=== PATIENT | male | born 1950 | race Caucasian/White ===

== ENCOUNTER 2018-12-20 17:31 | Inpatient (IN) | payer OTHER, MEDICAID ==
[~2018-12-20] VITALS: Ht 175.3 cm; Wt 70.0 kg
[~2018-12-20 17:31] MED LIST: ACET325T14 PO; ACID1TAB7 PO; ALBU18HF INH; ALBU8.5H8 INH; AMLO-150 PO; BISA10SU65 PR; BUDE0.5A NPPB; BUDE10.2 INH; CARB-136 EACH EAR; DOCU-131 PO; GUAI200T3 PO; Guaifenesin/Cod200mg-20MG/10ML PO; HEPA50002 SQ; IPRA3AMP30 NPPB; IPRA4AER INH; LACT20SO13 NG; METH4TAB2 PO; ONDA4TAB13 PO; PANT40TA5 PO; POLY17PO5 PO; PRED10TA PO; SENN-177 NG; SENN-177 PO; SENN8.8S5 NG; UMEC1DIS INH; [UNRECOGNIZED DRUG - OTHER]; methylPREDNISolone SOD SUCC 125 MG/2 ML IVPush SCH
[2018-12-20 18:55] LABS: MD NO; MEAN CORPUSCULAR HEMOGLOBIN 27.4 pg (27.5-34.5)
[2018-12-20 19:02] LABS: BASOPHILS # (AUTO) 0.09 x10^3/uL (0-0.1); BASOPHILS % (AUTO) 1 % (0-1); EOSINOPHILS # (AUTO) 0.22 x10^3/uL (0-0.4); EOSINOPHILS % (AUTO) 2 % (1-7); LYMPHOCYTES # (AUTO) 1.01 x10^3/uL (1-3.4); LYMPHOCYTES % (AUTO) 7 % (22-44); MEAN CORPUSCULAR HGB CONC 31.5 g/dL (33.2-36.2); MEAN PLATELET VOLUME 8.8 fL (7.4-10.4); MONOCYTES # (AUTO) 0.84 x10^3/uL (0.2-0.8); MONOCYTES % (AUTO) 6 % (2-9); NEUTROPHILS # (AUTO) 12.24 x10^3/uL (1.8-6.8); NEUTROPHILS % (AUTO) 85 % (42-75); PLATELET COUNT 339 x10^3/uL (130-400); RED BLOOD COUNT 4.07 x10^6/uL (4.38-5.82); RED CELL DISTRIBUTION WIDTH 19.2 % (9.4-14.8)
[2018-12-20 19:17] LABS: ALANINE AMINOTRANSFERASE 22 U/L (12-78); ANION GAP 5 mmol/L (5-15); CALCIUM 9.1 mg/dL (8.5-10.1); CHLORIDE 99 mmol/L (98-107)
[2018-12-20 19:22] LABS: ALKALINE PHOSPHATASE 67 U/L (45-117); BILIRUBIN,TOTAL 0.2 mg/dL (0.2-1.0); CREATININE 0.63 mg/dL (0.7-1.3); TOTAL PROTEIN 6.7 g/dL (6.4-8.2); TROPONIN I < 0.015 ng/mL (0.000-0.045)
--- NOTE | 2018-12-20 19:35 | NUR ---
REPORT OF PT FROM ANTONIETTA LYLE AND ASSUMING CARE OF PT AT THIS TIME.
[2018-12-20] MEDS ORDERED: ALBUTEROL 0.5%, 20ML NPPB SCH (20:30)
--- NOTE | 2018-12-20 21:16 | NUR ---
REPORT OF PT TO ANTONIETTA CHANG. ALL QUESTIONS ANSWERED. PT UPDATED ON ROOM ASSIGNMENT AND VERBALIZES UNDERSTANDING. TECH PAGED FOR TRANSPORT AT THIS TIME.
[2018-12-20] MEDS ORDERED: ALBUTEROL SULFATE 2.5 MG/3 ML NPPB ONE (21:30)
[2018-12-20] MEDS ORDERED: POLYETHYLENE GLYCOL 17 GM PACKET PO PRN (21:30)
[2018-12-20] MEDS ORDERED: methylPREDNISolone SOD SUCC 125 MG/2 ML IVPush ONE (21:30)
[2018-12-20] MEDS ORDERED: ONDANSETRON ODT 4 MG PO PRN (21:30)
[2018-12-20] MEDS ORDERED: BISACODYL 10 MG SUPP PR PRN (21:30)
[2018-12-20] MEDS ORDERED: GUAIFENESIN/DM 200-20MG, 10ML UDC PO PRN (21:30)
[2018-12-20] MEDS: SODIUM CHLORIDE FLUSH 10ML SYR IVF SCH (21:56)
[2018-12-20] MEDS: HEPARIN 5,000 UNITS/ML, 1ML SQ SCH (21:56)
[2018-12-20 22:07] VITALS: BP 129/76
[2018-12-21 00:34] VITALS: BP 126/78
[2018-12-21] MEDS: methylPREDNISolone SOD SUCC 125 MG/2 ML IVPush SCH ×3 (04:49→22:46)
[2018-12-21] MEDS: HEPARIN 5,000 UNITS/ML, 1ML SQ SCH ×2 (04:49→13:58)
[2018-12-21] MEDS: ACETAMINOPHEN 325 MG TABLET PO PRN (05:21)
[2018-12-21 05:32] LABS: MEAN CORPUSCULAR HEMOGLOBIN 27.5 pg (27.5-34.5); MEAN CORPUSCULAR HGB CONC 31.6 g/dL (33.2-36.2); MEAN CORPUSCULAR VOLUME 86.9 fL (81-97); MEAN PLATELET VOLUME 8.9 fL (7.4-10.4); PLATELET COUNT 309 x10^3/uL (130-400); RED BLOOD COUNT 3.84 x10^6/uL (4.38-5.82); RED CELL DISTRIBUTION WIDTH 19.6 % (9.4-14.8)
[2018-12-21 05:33] LABS: CHLORIDE 102 mmol/L (98-107)
[2018-12-21 05:55] LABS: BASOPHILS % (AUTO) 0 % (0-1); EOSINOPHILS # (AUTO) 0.07 x10^3/uL (0-0.4); EOSINOPHILS % (AUTO) 1 % (1-7); LYMPHOCYTES # (AUTO) 0.47 x10^3/uL (1-3.4); LYMPHOCYTES % (AUTO) 4 % (22-44); MD SCAN; MONOCYTES # (AUTO) 0.04 x10^3/uL (0.2-0.8); MONOCYTES % (AUTO) 0 % (2-9); NEUTROPHILS # (AUTO) 10.37 x10^3/uL (1.8-6.8); NEUTROPHILS % (AUTO) 95 % (42-75)
[2018-12-21 05:58] LABS: ALANINE AMINOTRANSFERASE 19 U/L (12-78); ALBUMIN 2.7 g/dL (3.4-5.0); ALKALINE PHOSPHATASE 59 U/L (45-117); ANION GAP 6 mmol/L (5-15); BILIRUBIN,TOTAL 0.2 mg/dL (0.2-1.0); CALCIUM 8.9 mg/dL (8.5-10.1); CREATININE 0.53 mg/dL (0.7-1.3); TOTAL PROTEIN 6.1 g/dL (6.4-8.2)
[2018-12-21 07:20] VITALS: BP 115/78
[2018-12-21] MEDS: ALBUTEROL/IPRATROPIUM 2.5MG/0.5MG, 3 ML NPPB SCH ×4 (07:20→19:51)
[2018-12-21] MEDS: SENNA/DOCUSATE TABLET PO SCH (09:00)
[2018-12-21] MEDS: SODIUM CHLORIDE FLUSH 10ML SYR IVF SCH ×2 (09:54→22:46)
[2018-12-21] MEDS: BUDESONIDE 0.5 MG/2 ML INHA INH SCH ×2 (11:20→19:51)
[2018-12-21 13:58] VITALS: BP 124/79
[2018-12-21 20:58] VITALS: BP 118/68
[2018-12-22 02:36] VITALS: BP 112/71
[2018-12-22 07:18] VITALS: BP 120/75
[2018-12-22] MEDS: ALBUTEROL/IPRATROPIUM 2.5MG/0.5MG, 3 ML NPPB SCH ×4 (07:42→20:00)
[2018-12-22] MEDS: BUDESONIDE 0.5 MG/2 ML INHA INH SCH ×2 (07:43→20:04)
[2018-12-22 08:42] LABS: BASOPHILS # (AUTO) 0.05 x10^3/uL (0-0.1); BASOPHILS % (AUTO) 0 % (0-1); EOSINOPHILS # (AUTO) 0.39 x10^3/uL (0-0.4); EOSINOPHILS % (AUTO) 3 % (1-7); LYMPHOCYTES # (AUTO) 0.64 x10^3/uL (1-3.4); LYMPHOCYTES % (AUTO) 5 % (22-44); MD NO; MEAN CORPUSCULAR HEMOGLOBIN 27.2 pg (27.5-34.5); MEAN CORPUSCULAR HGB CONC 31.5 g/dL (33.2-36.2); MEAN CORPUSCULAR VOLUME 86.5 fL (81-97); MONOCYTES # (AUTO) 0.34 x10^3/uL (0.2-0.8); MONOCYTES % (AUTO) 3 % (2-9); NEUTROPHILS # (AUTO) 12.31 x10^3/uL (1.8-6.8); NEUTROPHILS % (AUTO) 90 % (42-75); PLATELET COUNT 302 x10^3/uL (130-400); RED BLOOD COUNT 3.85 x10^6/uL (4.38-5.82); RED CELL DISTRIBUTION WIDTH 19.4 % (9.4-14.8)
[2018-12-22 08:51] LABS: ANION GAP 3 mmol/L (5-15); CALCIUM 8.8 mg/dL (8.5-10.1); CHLORIDE 101 mmol/L (98-107); CREATININE 0.67 mg/dL (0.7-1.3)
[2018-12-22] MEDS: SODIUM CHLORIDE FLUSH 10ML SYR IVF SCH ×2 (09:00→21:00)
[2018-12-22] MEDS: SENNA/DOCUSATE TABLET PO SCH (09:00)
[2018-12-22] MEDS: methylPREDNISolone SOD SUCC 125 MG/2 ML IVPush SCH (09:30)
[2018-12-22] MEDS: ACETAMINOPHEN 325 MG TABLET PO PRN ×4 (09:32→22:01)
[2018-12-22] MEDS ORDERED: BUSPIRONE 5 MG TABLET PO PRN (11:00)
[2018-12-22 12:56] LABS: OCCULT BLOOD POSITIVE (NEGATIVE)
[2018-12-22 14:00] VITALS: BP 109/65
[2018-12-22 15:36] LABS: FOLATE LEVEL 5.6 ng/mL (3.1-17.5)
[2018-12-22] MEDS: PANTOPRAZOLE 40 MG IV IVPush SCH (15:39)
[2018-12-22 20:00] VITALS: BP 119/68
[2018-12-23 02:28] VITALS: BP 110/61
[2018-12-23] MEDS: ACETAMINOPHEN 325 MG TABLET PO PRN (02:55)
[2018-12-23] MEDS: PANTOPRAZOLE 40 MG IV IVPush SCH ×2 (02:55→14:30)
[2018-12-23 05:16] LABS: CALCIUM 8.8 mg/dL (8.5-10.1); CHLORIDE 105 mmol/L (98-107); CREATININE 0.52 mg/dL (0.7-1.3)
[2018-12-23 05:21] LABS: BASOPHILS # (AUTO) 0.01 x10^3/uL (0-0.1); BASOPHILS % (AUTO) 0 % (0-1); EOSINOPHILS # (AUTO) 0.17 x10^3/uL (0-0.4); EOSINOPHILS % (AUTO) 1 % (1-7); LYMPHOCYTES % (AUTO) 7 % (22-44); MD NO; MEAN CORPUSCULAR HEMOGLOBIN 27.7 pg (27.5-34.5); MEAN CORPUSCULAR VOLUME 86.5 fL (81-97); MEAN PLATELET VOLUME 8.7 fL (7.4-10.4); MONOCYTES # (AUTO) 1.12 x10^3/uL (0.2-0.8); MONOCYTES % (AUTO) 8 % (2-9); NEUTROPHILS # (AUTO) 12.63 x10^3/uL (1.8-6.8); NEUTROPHILS % (AUTO) 85 % (42-75); PLATELET COUNT 239 x10^3/uL (130-400); RED BLOOD COUNT 3.26 x10^6/uL (4.38-5.82); RED CELL DISTRIBUTION WIDTH 19.7 % (9.4-14.8)
[2018-12-23 05:25] LABS: ANION GAP -1 mmol/L (5-15)
[2018-12-23] MEDS ORDERED: PANTOPROZOLE 40MG TABLET PO SCH (06:00)
[2018-12-23 08:00] VITALS: BP 116/65
[2018-12-23] MEDS: ALBUTEROL/IPRATROPIUM 2.5MG/0.5MG, 3 ML NPPB SCH (08:14)
[2018-12-23] MEDS: BUDESONIDE 0.5 MG/2 ML INHA INH SCH (08:15)
[2018-12-23] MEDS: SENNA/DOCUSATE TABLET PO SCH (09:00)
[2018-12-23] MEDS: SODIUM CHLORIDE FLUSH 10ML SYR IVF SCH (09:00)
[2018-12-23] MEDS ORDERED: methylPREDNISolone SOD SUCC 125 MG/2 ML IVPush SCH (09:00)
[2018-12-23] MEDS ORDERED: PANT40TA3 PO ×2 (11:54→12:26)
[2018-12-23] MEDS ORDERED: BUSP5TAB2 PO (11:54)
[2018-12-23] MEDS ORDERED: SENN-177 PO (11:54)
[2018-12-23] MEDS ORDERED: PRED5TAB PO (11:54)
[2018-12-23] MEDS ORDERED: PRED20TA PO (11:54)
[2018-12-23] MEDS ORDERED: SUCR1TAB33 PO (12:26)
[2018-12-23 13:50] VITALS: BP 133/74
[2018-12-23] MEDS ORDERED: ALBUTEROL/IPRATROPIUM 2.5MG/0.5MG, 3 ML NPPB SCH (21:00)
== END 2018-12-23 16:34 | DRG 189 ==
LOC: ED 20:06 → 4EST 20:47
PROVIDERS: ADMIT Family Medicine; ATTEND Family Medicine
DX: J96.21 Acute and chronic respiratory failure with hypoxia (principal); R65.10 Systemic inflammatory response syndrome (SIRS) of non-infectious origin without acute organ dysfunction; E44.0 Moderate protein-calorie malnutrition; E87.3 Alkalosis; K92.1 Melena; D63.8 Anemia in other chronic diseases classified elsewhere; I10 Essential (primary) hypertension; J43.9 Emphysema, unspecified; K21.0 Gastro-esophageal reflux disease with esophagitis; K44.9 Diaphragmatic hernia without obstruction or gangrene; T38.0X5A Adverse effect of glucocorticoids and synthetic analogues, initial encounter; Z79.899 Other long term (current) drug therapy; Z87.19 Personal history of other diseases of the digestive system; Z87.891 Personal history of nicotine dependence; Z99.81 Dependence on supplemental oxygen; Z88.0 Allergy status to penicillin; Z68.22 Body mass index [BMI] 22.0-22.9, adult
CPT/HCPCS: 36415; 36600; 71045; 80048; 80053; 82272; 82607; 82728; 82746; 82803; 83540; 83550; 83880; 84484; 85014; 85018; 85025; 93005; 94640; 99285; G0378; J1644; J7620; J7626; C9113; J2930; J7512